=== PATIENT | male | born 1950 | race Caucasian/White ===

== ENCOUNTER 2022-05-18 11:05 | Emergency (ER) | payer MEDICARE, BC ==
[2022-05-18 11:24] VITALS: BP 145/68
--- NOTE | 2022-05-18 11:43 | XRAY Report ---
PROCEDURE: Finger(s) LT INDICATIONS: Trauma TECHNIQUE: AP hand, 3 views of the fourth finger(s) acquired. COMPARISON: None. FINDINGS: Bones: There is a comminuted fracture of the mid and distal aspect of the fourth distal phalanx. No articular extension. It is minimally displaced. Soft tissues: No suspicious soft tissue calcifications or masses. IMPRESSION: Minimally displaced comminuted fourth distal phalanx fracture. Reviewed by: Hazel Thorpe MD on 05/18/2022 11:42 AM PDT Approved by: Hazel Thorpe MD on 05/18/2022 11:42 AM PDT Station ID: [id number]
--- NOTE | 2022-05-18 13:04 | ED Physician Documentation ---
History of Present Illness - Stated complaint Stated Complaint: TENDER LT RING FINGER - Chief complaint Chief Complaint: Ext Problem - Additonal information Additional information: 72-year-old Male presents emergency department for evaluation of a left ring finger injury sustained when working on his steps with a stone. His hand slipped and he smashed the distal portion of the ring finger against a large stone in step. He initially iced the finger for a large period of time which reduce swelling but over the last 3 to 4 days he continues to have tenderness. No history of previous injury. He is right-hand dominant. Reliable historian Review of Systems Constitutional: denies: Fever Musculoskeletal: reports: Extremity pain PD PAST MEDICAL HISTORY - Allergies Allergies/Adverse Reactions: Allergies Allergy/AdvReac Type Severity Reaction Status Date / Time No Known Drug Allergies Allergy Verified 05/18/22 11:21 PD ED PE EXPANDED - Extremities Extremities: Left finger(s) (FailedTenderness swelling and ecchymosis at the distal ring finger next. Preserved flexion extension at the against resistance at DIP joint. NVI.) Results - Vitals Vitals: Vital Signs - 24 hr 05/18/22 11:21 Temperature 36.5 C Heart Rate 58 L Respiratory 14 Rate Blood Pressure 145/68 H O2 Saturation 97 Oxygen O2 Source Room air - Rads (name of study) left fingers Relevant Findings:: Final report received (Minimally displaced comminuted fourth distal phalanx fracture) PD Medical Decision Making - ED course Complexity details: reviewed results, d/w patient ED course: 72-year-old male presents emergency department for evaluation of acute left ring finger pain sustained when he accidentally smashed it between a step and a large stone 4 days ago. The x-ray is interpreted by the radiologist shows a minimally displaced comminuted fourth distal phalanx fracture. Clinically on exam the patient has preserved flexion extension at the DIP joint. No evidence of tendon injury. Patient was placed in a finger splint and advised follow-up with PCP for referral to orthopedics. Usual conservative care for uncomplicated finger fractures was discussed as well as emergent return precautions Departure - Departure Disposition: 01 Home, Self Care Clinical Impression: Fracture of distal phalanx of finger Qualifiers: Encounter type: initial encounter Finger: ring finger Fracture type: closed Fracture alignment: nondisplaced Laterality: left Qualified Code(s): S62.665A - Nondisplaced fracture of distal phalanx of left ring finger, initial encounter for closed fracture Instructions: ED Fx Finger Closed Comments: [place] you are seen today in the emergency department for evaluation of pain in your distal left ring finger after accidentally smashing it with a stone against your stairs. The x-ray does show a comminuted distal phalanx fracture. On exam your tendons appear to be functioning normal which is important. In general treatment for your type of fracture is simple immobilization. I would like you to avoid wearing your wedding band until the swelling is fully resolved. Please use the splint for the next 4 to 6 weeks to help immobilize the finger. Please discuss this ED visit with your primary care doctor and ask for long-term referral to orthopedics for reevaluation and management. Return to the ER if you have any concerns of poor healing, infection or fevers
== END 2022-05-18 13:13 | disposition home or self-care (01) ==
LOC: ED 11:05
DX: S62.665A Nondisplaced fracture of distal phalanx of left ring finger, initial encounter for closed fracture (principal); W22.8XXA Striking against or struck by other objects, initial encounter
CPT/HCPCS: 99283